=== PATIENT | female | born 1990 | race Hispanic/Latino ===

== ENCOUNTER 2019-12-18 22:58 | Day surgery (SDC) | payer OTHER, SELFPAY ==
[2019-12-19] MEDS ORDERED: hydrALAZINE 20 MG/ML VIAL SLOW IVP PRN (00:07)
--- NOTE | 2019-12-19 00:56 | PDOC.FPRHP ---
- History of Present Illness Chief Complaint: contractions History of Present Illness: 29 y/o at 30.1 weeks presents with c/o contractions and fluid in her panties. Has been feeling ctx since 1999, q5 min. Overall, uncomplicated except for previous episodes of BV and GBS bacteriuria. Today, she is feeling baby move and denies any vaginal bleeding, vaginal discharge, or large gush of fluid. She describes a small amount of fluid leaking, and has had to change her underwear 3 times tonight. She also c/o frequent urination. Denies any dysuria, hematuria. - Allergies/Adverse Reactions Allergies Allergy/AdvReac Type Severity Reaction Status Date / Time No Known Allergies Allergy Verified 10/14/15 00:47 - Home Medications Medication Instructions Recorded Confirmed Type Vit No.130/Iron/Folic 1 tab PO DAILY 10/08/15 12/18/19 History [ Tablet] - History PMHx: PSHx: none FHx: none Social: denies tobacco, etoh, drug use - Review of Systems General: denies: fever/chills Respiratory: denies: shortness of breath Cardiovascular: denies: chest pain, edema Gastrointestinal: denies: nausea, vomiting, abdominal pain Genitourinary: reports: polyuria, other (denies vaginal bleeding). denies: dysuria, discharge - Vital signs BP: [] HR: [] RR: [] Tmax: [] Pox: []% on [] Wt: [] - Physical Exam Constitutional: NAD, awake, alert and oriented, well developed HEENT: conjunctiva clear, grossly normal vision, grossly normal hearing Heart: RRR, normal S1/S2, no murmurs/rubs/gallops, pulses present, no edema Lungs: CTAB, no respiratory distress Abdomen: soft FMR H&P: Upper Level - Plan Date/Time: 12/19/19 0056 I, [], have evaluated this patient and agree with findings/plan as outlined by technology intern resident. Pertinent changes/additions are listed here.
[2019-12-19 01:34] LABS: Bacteria/HPF None Seen HPF (None Seen); Bilirubin Negative (Negative); Blood, Urine Negative (Negative); Clarity Clear (Clear); Glucose, Urine (Dipstick) Normal (Negative); Ketone, Urine Negative (Negative); Leukocyte Negative Leu/uL (Negative); Nitrite Negative (Negative); Protein, Urine (Dipstick) Negative (Neg-Trace); RBC/HPF 0-3 HPF (0-3); Specific Gravity, Urine 1.012 (1.002-1.036); Squamous Epithelial 0-3 HPF (0-3); Urobilinogen Normal mg/dL (Less than 2); WBC/HPF 0-3 HPF (0-3)
[2019-12-19 01:43] LABS: Urine Culture Reflex No No
--- NOTE | 2019-12-19 02:01 | PDOC.FPROB ---
FMR OB H&P: HPI - History of Present Illness Chief Complaint: contractions History of Present Illness: 29 y/o at 30.1 weeks presents with c/o contractions and fluid in her panties. Has been feeling ctx since 1999, q5 min. Overall, uncomplicated except for previous episodes of BV and GBS bacteriuria. Today, she is feeling baby move and denies any vaginal bleeding, vaginal discharge, or large gush of fluid. She describes a small amount of fluid leaking, and has had to change her underwear 3 times tonight. She also c/o frequent urination. Denies any dysuria, hematuria. 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: hx of ASCUS with high risk HPV in 2014; ASCUS without high risk HPV in april 2019 - Surgical History Sx History: none - Social History Social History: denies etoh, tobacco, drug use - Family History Family History: non-contributory FMR OB H&P: Medications - Current Home Medications: Medication Instructions Recorded Confirmed Type Vit No.130/Iron/Folic 1 tab PO DAILY 10/08/15 12/18/19 History [ Tablet] Metronidazole [metroNIDAZOLE] 500 mg PO Q12HR #14 tab 12/19/19 Rx Allergies/Adverse Reactions: Allergies Allergy/AdvReac Type Severity Reaction Status Date / Time No Known Allergies Allergy Verified 10/14/15 00:47 FMR OB H&P: ROS - Review of Systems General: denies: fever/chills Cardiovascular: denies: chest pain, edema Gastrointestinal: denies: abdominal pain Genitourinary (Female): reports: polyuria, contractions. denies: dysuria, hematuria, vaginal discharge, vaginal pain, vaginal bleeding, vaginal pressure FMR OB H&P: Physical Exam - Physical Exam General: NAD, awake, alert and oriented HEENT: normocephalic and atraumatic, conjunctiva clear, grossly normal vision, grossly normal hearing Heart: RRR, no murmurs/rubs/gallops, pulses present, no edema General: CTAB, no respiratory distress Abdomen: soft, gravid, non-tender, bowel sound present Musculoskeletal: normal gait and station, pulses present Skin: no rash Psychiatric: intact recent and remote memory, good judgement and insight, normal mood and affect - Pelvic Exam Deviation from normal: pea-sized abscess R side of introitus SVE: cervix closed FMR OB H&P: Results - Labs Lab results: Laboratory Results - last 24 hr 12/19/19 00:27 Urine Color Light-Yellow Urine Clarity Clear Urine pH 7.0 Ur Specific [place] 1.012 Urine Protein Negative Urine Glucose (UA) Normal Urine Ketones Negative Urine Blood Negative Urine Nitrite Negative Urine Bilirubin Negative Urine Urobilinogen Normal Ur Leukocyte Esterase Negative Urine RBC 0-3 Urine WBC 0-3 Ur Squamous Epith Cells 0-3 Urine Bacteria None Seen Urine Culture Reflexed No FMR OB H&P: A/P Disposition: sIUP, r/o labor - FFN: neg - Amnisure: neg - cervical check: closed - not in labor and low risk of labor in next 2 weeks. will discharge to home. Urinary frequency - UA: negative - VP3: pending - GC/chlamydia: pending - some discharge noted on exam. will call patient with VP3, GC/chlamydia results when resulted. Discussion: Date/Time: 12/19/19 6327 This H&P was discussed with Dr. Miller and Dr. Thomas who agree with the above documentation and plan. Addendum - Attending - Attending Attestation Date/Time: 12/19/19 2730 I personally evaluated the patient and discussed the management with Dr. Gordon and Dr. Miller I agree with the History, Examination, Assessment and Plan documented above with any addition or exceptions noted below. Patient presented for evaluation of contractions and leakage of fluid. Irritability initially on toco. Reactive FHR. No decels. No VB. No fluid on exam. White discharge present. After patient voided, irritability improved. Patient reported improvement. Negative speculum exam and valsava. Neg amnisure. Neg fFH. Close/th/high. No evidence of UTI. Swabs pending. Ok to d/c to home with precautions. ABrayMD
[2019-12-19 02:29] LABS: FFN Internal QC Analyzer PASS (PASS); FFN Internal QC Cassette PASS (PASS); Fetal Fibronectin Negative (Negative)
[2019-12-19 02:39] LABS: Amnisure Internal Control QC ACCEPTABLE (ACCEPTABLE); Amnisure Test No Membranes Rupture (No Rupture)
[2019-12-19 22:25] LABS: Chlamydia by PCR Not Detected (NotDetected); GC by PCR Not Detected (NotDetected)
== END 2019-12-19 02:50 | disposition home or self-care (01) ==
LOC: L&D/OP 22:58
PROVIDERS: ATTEND Student in an Organized Health Care Education/Training Program
DX: O47.03 False labor before 37 completed weeks of gestation, third trimester (principal); O23.593 Infection of other part of genital tract in pregnancy, third trimester; B96.89 Other specified bacterial agents as the cause of diseases classified elsewhere; Z3A.30 30 weeks gestation of pregnancy
CPT/HCPCS: 81001; 82731; 84112; 87480; 87491; 87510; 87591; 87660; 99285

== ENCOUNTER 2020-02-14 09:50 | Outpatient (CLI) | payer OTHER ==
[2020-02-15 13:41] LABS: SARS-CoV-2 MS2 Positive; SARS-CoV-2 N Gene Negative; SARS-CoV-2 S Gene Negative; SARS-CoV-2 by NAA Not Detected (NotDetected); SARS-CoV-2 orf1ab Negative
== END 2020-02-14 09:51 | disposition home or self-care (01) ==
LOC: LABBT 09:50
PROVIDERS: ATTEND Student in an Organized Health Care Education/Training Program
DX: Z20.828 Contact with and (suspected) exposure to other viral communicable diseases (principal)
CPT/HCPCS: 87635; U0003

== ENCOUNTER 2020-02-18 19:17 | Inpatient (IN) | payer OTHER, SELFPAY ==
[2020-02-18] MEDS ORDERED: hydrALAZINE 20 MG/ML VIAL SLOW IVP PRN (20:48)
[2020-02-18] MEDS ORDERED: Misoprostol 200 MCG TAB PR PRN (20:48)
[2020-02-18] MEDS ORDERED: Promethazine HCl 25 MG/ML VIAL IM PRN (20:48)
[2020-02-18] MEDS ORDERED: Ondansetron PF 4 MG/2 ML Vial IVP PRN (20:48)
[2020-02-18] MEDS ORDERED: Carboprost 250 MCG/ML AMP IM PRN (20:48)
[2020-02-18] MEDS ORDERED: Methylergonovine 0.2 MG/ML VIAL IM PRN (20:48)
[2020-02-18] MEDS ORDERED: Ibuprofen 800 MG TAB PO PRN (20:48)
[2020-02-18] MEDS ORDERED: Lidocaine 1% (PF) 30 ML VIAL SC PRN (20:48)
[2020-02-18] MEDS ORDERED: NS / Oxytocin 40 units/1000ml 1,000 ML IV PRN (20:48)
[2020-02-18] MEDS ORDERED: Penicillin G Potassium 5 MILL.UNITS in Sodium Chloride 0.9% 100 ML IVPB SCH (21:00)
--- NOTE | 2020-02-18 21:04 | PDOC.FPROB ---
FMR OB H&P: HPI - History of Present Illness Chief Complaint: eIOL History of Present Illness: 29 yo at 39 wks by 10.2 wk kirsten presents for eIOL. Patient reports intermittent contractions that started yesterday morning briefly, stopped, and returned this morning. She is feeling them in her back and lower abdomen. She also reports an intermittent headache since Monday that she has not taken medicine for and swelling in her feet since yesterday. Patient denies any vision changes, CP, SOB, LOF, vaginal bleeding or discharge. Primary Care Physician: PCP - Juwan Bolden FMR OB H&P: Current - Care : 2 Para: 1001 Gestational age: 39 Due date: 02/25/2020 Dating Criteria: 10.2wk kirsten Course/Complications: Hx of BV in this , Hx of vaginal candidiasis diagnosed 02/12, GBS+ UCx this - OB Labs Blood type: O RH: positive Antibody Screen: negative HIV: negative RPR: negative HepBsAg: negative Rubella: immune Quad screen: negative Gonorrhea: negative Chlamydia: negative Pap Smear: ASCUS 05/02/2019 1 hour gtt: 2hr gtt: 66/132/102 GBS: positive H&H: 10.6/30.9 FMR OB H&P: History - Past Medical History PMH: None - OB History OB History: 10/23/2015 at 38 wks, 5.6lbs, vacuum assisted - 2nd degree laceration - 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 - ASCUS 05/02/2019 - Surgical History Sx History: None - Social History Social History: Denies tobacco, alcohol, drug use - Family History Family History: None FMR OB H&P: Medications - Current Home Medications: Medication Instructions Recorded Confirmed Type Vit No.130/Iron/Folic 1 tab PO DAILY 10/08/15 02/18/20 History [ Tablet] Allergies/Adverse Reactions: Allergies Allergy/AdvReac Type Severity Reaction Status Date / Time No Known Allergies Allergy Verified 02/18/20 19:47 FMR OB H&P: ROS - Review of Systems General: denies: fever/chills Eyes: denies: vision changes ENT: denies: nasal congestion Cardiovascular: reports: edema. denies: chest pain Respiratory: denies: shortness of breath Gastrointestinal: denies: nausea, vomiting Genitourinary (Female): denies: dysuria, vaginal discharge, vaginal bleeding, contractions Musculoskeletal: reports: swelling Neurologic: reports: headache. denies: weakness Integumentary: denies: itching, rash FMR OB H&P: Vital Signs - Maternal Vital signs: BP 109/72, HR 67, O2 98% - Heart Tones Baseline: 140 Variability: moderate Acceleration: present Deceleration: absent Category: category 1 [place] contractions every: 6-7 min FMR OB H&P: Physical Exam - Physical Exam General: NAD, awake, alert and oriented HEENT: normocephalic and atraumatic, EOMI, no scleral icterus, grossly normal vision, grossly normal hearing Neck: FROM Heart: RRR, no murmurs/rubs/gallops, pulses present Deviation from normal: mild [place] in feet bilaterally General: CTAB, no respiratory distress, no wheezing Abdomen: soft, gravid, non-tender Musculoskeletal: FROM in all four extremities Neurological: sensation to pain,touch and proprioception grossly normal Psychiatric: intact recent and remote memory, good judgement and insight, normal mood and affect - Pelvic Exam Vulva: normal hair distribution, appropriate kendrick stage SVE: /-2 Brennan score: 10 Membranes: intact Presentation: vertex FMR OB H&P: A/P Discussion: Date/Time: 02/18/202103 29 yo at 39 wks by 10.2 wk sono eIOL -vertex presentation -4/60/-2 @ 2020 on 02/17, cat 1, contractions ~7min -Brennan score of 10 -Will continue to monitor for now and recheck for change in 3 hours. May consider pitocin augmentation at that time. GBS+ UCx in -prophylaxis initiated Vaginal Candidias -positive VP3 on 02/12 -Will treat per clinic note Hx of BV -ALFONSO 02/12 This H&P was discussed with Dr. Nayak and Dr. Hernandez who agree with the above documentation and plan. I, Chiki Nayak DO, have evaluated and agree with discussed plan as documented above
[2020-02-18] MEDS: Lactated Ringer's 1,000 ML IV SCH (21:11)
[2020-02-18 21:24] LABS: Hemoglobin 12.2 g/dL (12.0-16.0); Mean Corpuscular HGB CONC 34.3 g/dL (32.0-36.0); Mean Corpuscular Hemoglobin 31.8 pg (27.0-31.0); Mean Corpuscular Volume 92.8 fL (78.0-98.0); Platelet Count 188 thou/uL (130-400); RBC Distribution Width 11.9 % (11.5-14.5); Red Blood Cell (RBC) Count 3.84 mill/uL (4.20-5.40); White Blood Cell (WBC) Count 6.5 thou/uL (4.8-10.8)
[2020-02-18 22:02] LABS: Syphilis Antibody Nonreactive (Nonreactive); Syphilis Antibody Index 0.06 S/CO (<1.00 Non-Reactive)
[2020-02-18 22:40] LABS: HBSAg Index 0.14 S/CO (0-0.99); Hep B Surf Ag Non-Reactive S/CO (NonReactive)
--- NOTE | 2020-02-18 23:42 | PDOC.LDPN ---
Labor & Delivery Progress Note - Subjective Subjective: comfortable, painful contractions, vaginal pressure - Objective Vital signs reviewed and normal: yes General: breathing through contractions Uterine fundus: non tender SVE: /-2 Dilation: 4 Effacement: 50% Station: -2 FHT: category 1, variability present [place] contractions every: 3-4 minutes Plan: continue plan of care -: 29 yo at 39 wks by 10.2 wk sono eIOL -vertex presentation -/-2 @ 2019 on 02/17, cat 1, contractions ~7min, Brennan 10 -/-2 @ 2330, cat 1, contractions ~4min, requesting epidural -Will recheck at 0300 and consider starting pitocin at that time -Received epidural around midnight GBS+ UCx in -prophylaxis initiated Vaginal Candidias -positive VP3 on 02/12 -Will treat per clinic note Hx of BV -ALFONSO 02/12
[2020-02-18] MEDS ORDERED: Fentanyl 4 mcg/Bup 0.1% Cadd 100 ML ONE (23:53)
[2020-02-19] MEDS: Penicillin G 2.5 MILL.units 2.5 MILL.UNITS in Premix Bag 1 BAG IVPB SCH ×5 (01:42→17:43)
[2020-02-19] MEDS: Lactated Ringer's 1,000 ML IV SCH ×2 (03:11→04:56)
--- NOTE | 2020-02-19 03:34 | PDOC.LDPN ---
Labor & Delivery Progress Note - Subjective Subjective: painful contractions - Objective Vital signs reviewed and normal: yes General: breathing through contractions SVE: /-2 Dilation: 4 Effacement: 50% Station: -2 FHT: category 1 [place] contractions every: ~6 min Plan: continue plan of care -: 29 yo at 39 wks by 10.2 wk sono eIOL -vertex presentation -/-2 @ 2020 on 02/17, cat 1, contractions ~7min, Brennan 10 -/-2 @ 2330, cat 1, contractions ~4min -Received epidural 0000 -/-2 @ 0240, cat 1, contractions ~7min. Patient has not had pain relief with epidural. Anesthesia called to assess. -Once comfortable with epidural will start pitocin. -Will recheck at 0300 and consider starting pitocin at that time GBS+ UCx in -prophylaxis initiated Vaginal Candidias -positive VP3 on 02/12 -Will treat per clinic note Hx of BV -ALFONSO 02/12
[2020-02-19] MEDS ORDERED: NS w/ Oxytocin 10 units 500 ML IV SCH ×2 (04:45)
--- NOTE | 2020-02-19 07:09 | PDOC.LDPN ---
Labor & Delivery Progress Note - Subjective Subjective: comfortable - Objective Vital signs reviewed and normal: yes General: NAD SVE: /-1 FHT: category 1, variability present [place] contractions every: 2 min Plan: continue plan of care, pitocin for augmentation -: eIOL -vertex presentation -60/-2 @ 2020 on 02/17, cat 1, contractions ~7min, Brennan 10 -/-2 @ 2330, cat 1, contractions ~4min -Received epidural 0000 -/-2 @ 0240, cat 1, contractions ~7min. -Since last check has had some intermittent decreased variablity, now returned to moderate. Consider sleep cycle. -/-1 @ 0700, cat 1/135/mod/+accel/no decel - continue pitocin - recheck SVE 2 hours - consider AROM next check if no change GBS+ UCx in -prophylaxis initiated Vaginal Candidias -positive VP3 on 02/12 -Will treat per clinic note Hx of BV -ALFONSO 02/12 BKaylen Gordon DO, PGY-01 Addendum - Attending - Attending Attestation Date/Time: 02/19/20 0809 I personally evaluated the patient and discussed the management with resident team I agree with the History, Examination, Assessment and Plan documented above with any addition or exceptions noted below. Continue current plan. Pit per protocol. Repeat exam in 2 to 4 hours. Monitor heart tones closely. Gemma
[2020-02-19] MEDS ORDERED: Fentanyl 4 mcg/Bup 0.1% Cadd 100 ML ONE (08:12)
--- NOTE | 2020-02-19 09:50 | PDOC.LDPN ---
Labor & Delivery Progress Note - Subjective Subjective: comfortable - Objective Vital signs reviewed and normal: yes General: NAD, breathing through contractions SVE: /0 FHT: category 1, variability present [place] contractions every: 2 min -: eIOL -vertex presentation -4/60/-2 @ 2020 on 02/17, cat 1, contractions ~7min, Brennan 10 -60/-2 @ 2330, cat 1, contractions ~4min -Received epidural 0000 -60/-2 @ 0240, cat 1, contractions ~7min. -Since last check has had some intermittent decreased variablity, now returned to moderate. Consider sleep cycle. -/-1 @ 0700, cat 1/135/mod/+accel/no decel -/0 @ 0930, cat 1/130/mod/+ accel/no decel; some intermittent decreased variablity, now returned to moderate. Consider sleep cycle. - will hold pitocin for now -recheck SVE 2 hours or sooner if clinical signs of completion GBS+ UCx in -prophylaxis initiated Vaginal Candidias -positive VP3 on 02/12 -Will treat per clinic note Hx of BV -ALFONSO 02/12 B. DO Heidi, PGY-01 Addendum - Attending - Attending Attestation Date/Time: 02/19/20 1000 I personally evaluated the patient and discussed the management with resident team I agree with the History, Examination, Assessment and Plan documented above with any addition or exceptions noted below. Continue current plan. Now 8 cm. Hold pitocin as needed for cat II tracing. Gemma
--- NOTE | 2020-02-19 11:31 | PDOC.LDPN ---
Labor & Delivery Progress Note - Subjective Subjective: painful contractions - Objective Vital signs reviewed and normal: yes General: breathing through contractions SVE: FHT: category 1, variability present [place] contractions every: 2 AROM: clear fluid -: eIOL -vertex presentation -460/-2 @ 2020 on 02/17, cat 1, contractions ~7min, Brennan 10 -60/-2 @ 2330, cat 1, contractions ~4min -Received epidural 0000 -/-2 @ 0240, cat 1, contractions ~7min. -Since last check has had some intermittent decreased variablity, now returned to moderate. Consider sleep cycle. -/-1 @ 0700, cat 1/135/mod/+accel/no decel -0 @ 0930, cat 1/130/mod/+ accel/no decel; some intermittent decreased variablity, now returned to moderate. Consider sleep cycle. -0 @ 1115 cat1/135 /mod/no decel; continues to have intermittent minimal variability - pitocin resumed, continue FHT monitoring - recheck SVE 1 hour or sooner if signs of completion GBS+ UCx in -prophylaxis initiated Vaginal Candidias -positive VP3 on 02/12 -Will treat per clinic note Hx of BV -ALFONSO 02/12 Tariq Gordon DO, PGY-01 Addendum - Attending - Attending Attestation Date/Time: 02/19/20 3511 I personally evaluated the patient and discussed the management with resident team I agree with the History, Examination, Assessment and Plan documented above with any addition or exceptions noted below. Awaiting . Now 9 cm. Gemma
--- NOTE | 2020-02-19 12:46 | PDOC.OPDEL ---
OB Operative/Delivery Note Delivery Dr/Surgeon: Patricia/William Pre-Delivery Diagnosis: elective induction Procedure/Post Delivery Dx: spontaneous vaginal delivery Weeks gestation: 39 (39.1) Anesthesia: epidural - Findings A Sex: male - 1 min: 8 - 5 min: 9 - Additional Findings/Plan Placenta delivered: spontaneous Repaired Obstetrical Laceration: 1st degree Estimated blood loss: 100 Compilations/Other Findings: Delivering Physician: Patricia Attending: William Procedure: Spontaneous Vaginal Delivery Anesthesia: epidural EBL: 100 ml Pre-op Diagnosis: 1. Term intrauterine elective induction 2. A1GDM 3. IUGR 4. GBS positive Post-op Diagnosis: 1. Term intrauterine , delivered 2. same as above Indications: A 29 y/o female presents for elective induction of labor. Delivery Note: This is 29 yo F @ 39.1 wks who delivered a viable M infant at 1203. Following an uneventful antepartum course, a vigorous Male was delivered over an intact perineum in the occipitoanterior position. Anterior Shoulder and then remainder of the body delivered. No nuchal cord. The head was held down and mouth and nares were bulb suctioned. Cord clamped after delayed cord clamping and cut and cord blood collected. Placenta delivered intact in the Jacobs presentation with a 3 vessel cord noted. Fundal massage was performed and the fundus was firm. The cervix and vagina were inspected and found to have small 1st degree laceration of the L posterior vaginal wall and repaired with 2-0 chromic in the usual fashion with good approximation and hemostasis. Infant went to nursery in good condition for routine care. Apgars were 8/9 at 1 & 5 minutes, respectively. Patient tolerated delivery well and went to after routine recovery/care. Adequate GBS prophylaxis x5 prior to delivery. B. DO Heidi, PGY-1 Attending NOTE: I was present and participated in the above mentioned procedure. Uncomplicated . Minor 1st degree perineal laceration easily repaired. GBS ppx completed. Minimal blood loss. Continue routine pp care. Gemma
[2020-02-19] MEDS ORDERED: Milk Of Magnesia 30 ML UDCUP PO PRN (13:52)
[2020-02-19] MEDS ORDERED: Bisacodyl 10 MG SUPP PR PRN (13:52)
[2020-02-19] MEDS ORDERED: NS / Oxytocin 40 units/1000ml 1,000 ML IV SCH (13:52)
[2020-02-19] MEDS ORDERED: hydrALAZINE 20 MG/ML VIAL SLOW IVP PRN (13:52)
[2020-02-19] MEDS ORDERED: Lanolin Ointment 7 GM TUBE TOP PRN (13:52)
[2020-02-19] MEDS ORDERED: Adacel (T-DAP) 0.5 ML SYRINGE IM ONE (13:52)
[2020-02-19] MEDS: Ferrous Sulfate 325 MG TAB PO SCH (17:43)
[2020-02-19] MEDS: Ibuprofen 800 MG TAB PO SCH (21:57)
[2020-02-19] MEDS: Docusate Calcium (SURFAK) 240 MG CAP PO SCH (21:57)
[2020-02-20] MEDS: Ibuprofen 800 MG TAB PO SCH ×2 (05:11→14:40)
--- NOTE | 2020-02-20 06:42 | PDOC.PP ---
Post Progress Note Post Day #: 1 Subjective: Eating, drinking, voiding, passing flatus. Minimal lochia. Pain well controlled. She would like help with latch for . PO intake tolerated: yes Flatus: yes Ambulation: yes Vital Signs (12 hours) Temp Pulse Resp BP BP Pulse Ox 02/20/20 05:00 98.2 F 73 18 88/58 L 02/20/20 00:35 98.0 F 59 L 18 90/52 L 02/19/20 23:02 98.9 F 66 16 92/50 L 96 Weight Weight 61.689 kg - Physical Examination General: NAD Cardiovascular: no m/r/g, RRR Respiratory: clear to auscultation bilaterally, non-labored breathing Abdominal: + bowel sounds, lochia (minimal), no distention, appropriately TTP Fundus firm & at: below umb Skin: no rash Neurological: no gross focal deficits Result Diagrams: 02/18/20 20:57 Additional Labs: Post Labs Hep Bs Antigen Non-Reactive S/CO (NonReactive) 02/18/20 20:57 Blood Type O POSITIVE 02/18/20 20:57 - Assessment/Plan 29 yo delivered via @ 39.1 wks by 10.2 wk sono @ 1203 on 02/19/2020 PPD#1 -Continue routine PP care -Likely DC home later today if baby voids and after 24 hr bili if no lights indicated - consult today for latch GBS Bacteruria -s/p penicillinx5 Vaginal Candidias -tx with topical miconazole on DC Hx of BV -ALFONSO 02/12 Dispo: Doing well, Likely DC to home today if baby doing well Inocencia Gatica MD PGY3 Addendum - Attending - Attending Attestation Date/Time: 02/20/20 1050 I personally evaluated the patient and discussed the management with resident team I agree with the History, Examination, Assessment and Plan documented above with any addition or exceptions noted below. Doing well. Meeting milestones. Breast and bottle. to follow up later today. Request early d/c if able. Lochia appropriate. Pain controlled. Uterus firm. Gemma
[2020-02-20] MEDS ORDERED: Prenatal Vitamin 1 TAB PO SCH (09:00)
[2020-02-20] MEDS: Docusate Calcium (SURFAK) 240 MG CAP PO SCH (09:28)
[2020-02-20] MEDS: Ferrous Sulfate 325 MG TAB PO SCH ×2 (09:32→16:52)
[2020-02-20 11:54] VITALS: BP 95/54; TEMP 98.2
== END 2020-02-20 17:35 | disposition home or self-care (01) | DRG 806 ==
LOC: L&D 19:17 → 3SW 02-19 16:26
PROVIDERS: ADMIT Family Medicine; ATTEND Family Medicine
PROC: 10907ZC Drainage of Amniotic Fluid, Therapeutic from Products of Conception, Via Natural or Artificial Opening (ICD-10-PCS; 2020-02-18)
PROC: 3E033VJ Introduction of Other Hormone into Peripheral Vein, Percutaneous Approach (ICD-10-PCS; 2020-02-18)
PROC: 10E0XZZ Delivery of Products of Conception, External Approach (ICD-10-PCS; principal; 2020-02-19)
PROC: 0HQ9XZZ Repair Perineum Skin, External Approach (ICD-10-PCS; 2020-02-19)
DX: O99.824 Streptococcus B carrier state complicating childbirth (principal); O98.82 Other maternal infectious and parasitic diseases complicating childbirth; Z37.0 Single live birth; Z3A.39 39 weeks gestation of pregnancy; B37.3 Candidiasis of vulva and vagina; O70.0 First degree perineal laceration during delivery; Z20.828 Contact with and (suspected) exposure to other viral communicable diseases
CPT/HCPCS: 36415; 51702; 85027; 86780; 86850; 86900; 86901; 87340; J2540; J2590; J3490